=== PATIENT | male | born 1980 | race African-American/Black ===

== ENCOUNTER 2021-11-15 04:08 | Emergency (ER) | payer MEDICAID ==
[~2021-11-15] VITALS: Ht 180.3 cm; Wt 68.0 kg
[2021-11-15 04:20] VITALS: BP 125/79
[2021-11-15] MEDS ORDERED: KETOROLAC 60MG/2ML VIAL IM ONE (05:30)
[2021-11-15] MEDS ORDERED: KETOROLAC 60MG/2ML VIAL IM SCH (08:30)
[2021-11-15] MEDS ORDERED: T3 PO (09:09)
[2021-11-15] MEDS ORDERED: IBUP-2028 PO (09:09)
== END 2021-11-15 09:29 | disposition home or self-care (01) ==
LOC: ER 04:31
DX: M54.30 Sciatica, unspecified side (principal)
CPT/HCPCS: 72100; 96372; 99283; J1885